=== PATIENT | male | born 1960 | race Caucasian/White ===

== ENCOUNTER 2017-02-23 03:30 | Outpatient (CLI) | payer OTHER | END 2017-02-23 03:31 | disposition home or self-care (01) | LOC: BICMRI 03:30 | PROVIDERS: ATTEND Specialist | DX: J38.02 Paralysis of vocal cords and larynx, bilateral (principal) | CPT/HCPCS: 70551 ==

== ENCOUNTER 2017-02-23 14:03 | Outpatient (CLI) | payer OTHER ==
--- NOTE | 2017-02-23 15:06 | CT ---
SOFT TISSUE NECK CT WITHOUT CONTRAST INDICATION: Vocal cord paralysis, bilateral. COMPARISON: No prior comparison. FINDINGS: No evidence of mass at the level of the glottis. There is effacement of the right piriform sinus wit h prominent soft tissue also seen at the right aspect of the vallecula. The regional soft tissues ar e limited in assessment without IV contrast. No intrinsic thyroid lesion evident. There is osseous degenerative change. IMPRESSION: Soft tissue fullness of the right aspect of the vallecula and with effacement of right piriform sinus . This is nonspecific. Evaluation is limited without IV contrast. Recommend correlation with [facility] t visualization. POS: TAMARA
== END 2017-02-23 14:04 | disposition home or self-care (01) ==
LOC: CT 14:03
PROVIDERS: ATTEND Specialist
DX: J38.02 Paralysis of vocal cords and larynx, bilateral (principal)
CPT/HCPCS: 70490

== ENCOUNTER 2017-03-01 08:21 | Inpatient (IN) | payer OTHER ==
[2017-02-28 14:55] VITALS: BMI 32.3
[2017-03-01] MEDS ORDERED: Lidocaine 1% w/Epinephrine 1:200K 30 ML VIAL ONE (09:02)
[2017-03-01] MEDS ORDERED: Fentanyl 100 MCG/2 ML VIAL ONE (09:05)
[2017-03-01] MEDS ORDERED: Ondansetron HCl/PF 4 MG/2 ML Vial ONE (13:10)
[2017-03-01] MEDS ORDERED: ePHEDrine/0.9% NaCl/PF SYRINGE 50 mg/10 ml ONE (13:10)
[2017-03-01] MEDS ORDERED: PROPOFOL 200 MG/20 ML VIAL ONE (13:10)
[2017-03-01] MEDS ORDERED: Dexamethasone 20 MG/5 ML VIAL ONE (13:10)
[2017-03-01] MEDS ORDERED: Lidocaine 1% PF 5 ML VIAL ONE (13:10)
[2017-03-01] MEDS ORDERED: Succinylcholine Chloride 20 MG/ML 10 ml SYRINGE FS ONE (13:10)
[2017-03-01] MEDS ORDERED: Hydrocodone-Acetamin 15 ML UDCUP PO PRN (13:57)
[2017-03-01] MEDS ORDERED: Ondansetron HCl/PF 4 MG/2 ML Vial SLOW IVP PRN (13:58)
[2017-03-01] MEDS: Hydrocodone-Acetamin 15 ML UDCUP PO PRN ×2 (14:45→21:36)
[2017-03-01] MEDS: Sodium Chloride 0.45% 1,000 ML IV SCH ×2 (14:45→21:40)
[2017-03-01] MEDS: CEFAZOLIN 1 GM, Syringe 2.5 ML in Sterile Water 7.5 ML SLOW IVP SCH ×2 (14:45→21:40)
[2017-03-01] MEDS ORDERED: Albuterol Sulfate 2.5 mg/3 ml Neb NEB PRN (16:49)
[2017-03-01] MEDS ORDERED: Pseudoephedrine HCl 30 MG TAB PO PRN (16:50)
[2017-03-01] MEDS ORDERED: Ibuprofen 200 MG TAB PO PRN (16:50)
--- NOTE | 2017-03-01 17:21 | OP ---
PREOPERATIVE DIAGNOSES: 1. Bilateral true vocal cord paralysis. 2. Stridor. POSTOPERATIVE DIAGNOSES: 1. Bilateral true vocal cord paralysis. 2. Stridor. PROCEDURES: 1. Tracheotomy. 2. Direct laryngoscopy. SURGEON: Neal Middleton M.D. ESTIMATED BLOOD LOSS: 0 mL COMPLICATIONS: None. ANESTHESIA: GETA. DESCRIPTION OF PROCEDURE: The patient was taken to the operating room and placed supine on the table . General endotracheal anesthesia was obtained by the Anesthesia staff. Tube was secured in the mid line of the upper lip. Shoulder roll was placed and the patient was prepped and draped in standard s urgical procedure. Upon this, a 2 cm incision was made just below the cricoid cartilage and the lowe r part of the neck. Dissection was carried through skin and subcutaneous tissues. Following this, d issection was carried down the midline. The strap muscles were in the midline. The thyroi d gland was displaced inferiorly and the trachea was exposed. A cricoid hook was placed to elevate t cricoid and a horizontal incision was made with an 11 blade through tracheal rings #2 and #3. Fol lowing this, an inferiorly based Jv flap was created using curved scissors. This flap was then se cured to a 2-0 silk stitch. The endotracheal tube was removed and a #6 Shiley was then placed into t he trachea. Bilateral breath sounds were confirmed. The tube was then fully removed. The tract was secured with 2-0 silk stitches and Velcro tie. Following this, the Dedo laryngoscope was used to ex amine the oral cavity and oropharynx, which were noted to be within normal limits. Bilateral true vo miriam cords, piriform sinuses, vallecula, epiglottis all appeared to be within normal limits. Patient tolerated the procedure well.
[2017-03-01] MEDS: Tamsulosin HCl 0.4 MG CAP PO SCH (20:08)
[2017-03-01] MEDS: Oseltamivir 75 MG CAP PO SCH (20:11)
[2017-03-02] MEDS: Sodium Chloride 0.45% 1,000 ML IV SCH ×3 (05:49→21:05)
[2017-03-02] MEDS: CEFAZOLIN 1 GM, Syringe 2.5 ML in Sterile Water 7.5 ML SLOW IVP SCH ×3 (05:49→21:03)
[2017-03-02] MEDS: Hydrocodone-Acetamin 15 ML UDCUP PO PRN ×3 (05:54→18:44)
[2017-03-02] MEDS: Oseltamivir 75 MG CAP PO SCH ×2 (08:38→21:03)
[2017-03-02] MEDS: Loratadine 10 MG TAB PO SCH (08:38)
[2017-03-02] MEDS ORDERED: Calcium Carbonate 500 MG ChewTAB PO PRN (11:36)
[2017-03-02] MEDS: Tamsulosin HCl 0.4 MG CAP PO SCH (21:03)
[2017-03-03] MEDS: Sodium Chloride 0.45% 1,000 ML IV SCH ×2 (05:10→14:25)
[2017-03-03] MEDS: CEFAZOLIN 1 GM, Syringe 2.5 ML in Sterile Water 7.5 ML SLOW IVP SCH ×2 (06:32→14:25)
[2017-03-03] MEDS: Loratadine 10 MG TAB PO SCH (09:13)
[2017-03-03] MEDS: Oseltamivir 75 MG CAP PO SCH (09:13)
[2017-03-03 14:29] VITALS: TEMP 98.8
[2017-03-03 16:42] VITALS: BP 139/85
--- NOTE | 2017-03-03 20:44 | DIS ---
SUMMARY: Patient underwent tracheostomy on Monday for bilateral vocal cord paralysis. He has don e very well in the hospital, currently showing trach speech and self-trach care. Oxygen saturation h as remained good. He will be discharged on Tylenol and ibuprofen for pain. DIET: Soft to regular diet as tolerated. FOLLOWUP: He will follow up with us on Monday for suture removal.
--- NOTE | 2017-03-03 20:54 | PRG ---
DATE OF SERVICE: 03/02/2017 SUBJECTIVE: The patient is postoperative day #2 status post tracheostomy, had no problems at all. W e have been awaiting for Passy César valve replaced as well as suction machine, which should be comple te by this afternoon. Prescriptions for tracheostomy supplies and tracheostomy machine were provided . PHYSICAL EXAMINATION: GENERAL: The patient is using tracheostomy speech very well. No bleeding or edema around the areas. Voice is fairly. He is clearing his secretions appropriately. NECK: Fully mobile. LUNGS: Clear to auscultation bilaterally. ABDOMEN: Soft, nontender, nondistended. Positive bowel sounds. ASSESSMENT: Postoperative day #2, status post tracheotomy, the patient is doing good. PLAN: We will plan for discharge today. He will not require any oral antibiotics or oral pain medic ine other than Tylenol and ibuprofen. He is cleared for a [id number] diet as tolerated. He will f ollow up with us on Monday for suture removal of his stitches.
== END 2017-03-03 17:25 | disposition home or self-care (01) | DRG 13 ==
LOC: SDC 08:21 → SURG A 11:44
PROVIDERS: ADMIT Otolaryngology Plastic Surgery within the Head & Neck; ATTEND Otolaryngology Plastic Surgery within the Head & Neck
PROC: 0B110F4 Bypass Trachea to Cutaneous with Tracheostomy Device, Open Approach (ICD-10-PCS; principal; 2017-03-01)
PROC: 0CJS8ZZ Inspection of Larynx, Via Natural or Artificial Opening Endoscopic (ICD-10-PCS; 2017-03-01)
DX: J38.02 Paralysis of vocal cords and larynx, bilateral (principal)
CPT/HCPCS: 94760; A4216; G9171-GN-CI; G9172-GN-CH; J0690; J1100; J2001; J2405; J2704; J3010